=== PATIENT | male | born 1970 | race Caucasian/White ===

== ENCOUNTER 2024-02-08 02:23 | Emergency (ER) | payer MEDICAID, MEDICARE ==
[~2024-02-08] VITALS: Ht 175.3 cm; Wt 70.0 kg
[2024-02-08 02:25] VITALS: BP 100/69; PULSE 78; RESP 16; O2SAT 98
[2024-02-08 02:48] VITALS: TEMP 98.6
[2024-02-08] MEDS: ACETAMINOPHEN 325MG TABLET PO ONE (02:48)
[2024-02-08] MEDS ORDERED: ACET-2708 MT (04:31)
== END 2024-02-08 04:52 | disposition home or self-care (01) ==
LOC: ER 02:37
DX: S09.90XA Unspecified injury of head, initial encounter (principal); M25.572 Pain in left ankle and joints of left foot; X58.XXXA Exposure to other specified factors, initial encounter; Y93.89 Activity, other specified; Y92.89 Other specified places as the place of occurrence of the external cause; Y99.8 Other external cause status
CPT/HCPCS: 73610; 73630; 70450; 99284; Z7610